=== PATIENT | female | born 1935 | race Caucasian/White ===

== ENCOUNTER 2024-03-01 10:46 | Emergency (ER) | payer SELFPAY ==
[2024-03-01 11:01] VITALS: TEMP 98; BMI 30.7
[2024-03-01 14:54] VITALS: RESP 18
[2024-03-01 16:11] VITALS: BP 138/70; PULSE 82
== END 2024-03-01 16:11 | disposition home or self-care (01) ==
LOC: JER 10:46
PROC: 0HQFXZZ Repair Right Hand Skin, External Approach (ICD-10-PCS; principal; 2024-03-01)
DX: S61.411A Laceration without foreign body of right hand, initial encounter (principal); M25.511 Pain in right shoulder; M54.50 Low back pain, unspecified; M79.651 Pain in right thigh; W06.XXXA Fall from bed, initial encounter
CPT/HCPCS: 70450-TC; 71045-TC-FY; 72100-TC-FY; 72170-TC-FY; 73030-TC-RT-FY; 73502-TC-RT-FY; 99284-25